=== PATIENT | male | born 1940 | race Caucasian/White ===

== ENCOUNTER 2017-05-18 21:09 | Inpatient (IN) ==
--- NOTE | 2017-05-18 21:19 | Emergency Department Report ---
Upper Extremity HPI - General Chief Complaint: Extremity Problem,Nontraumatic Stated Complaint: redness and tingling left arm post op Time Seen by Provider: 05/18/17 21:12 Source: patient Mode of arrival: ambulatory Limitations: no limitations - History of Present Illness HPI narrative: Patient recently had a pacemaker placed at [facility], today began developing tingling in the fingers of the left arm, with redness and swelling from the elbow down to the fingertips. This is progressed over the last 2 hours only. Patient has never had anything like this before, although he has had cellulitis in his lower extremities, no DVT history. And also notes left occipital headache with mild dizziness and a feeling of almost vertigo since surgery. Patient occasionally has sharp headaches in this area but this is more intense, dull, protracted, and has not relented with Tylenol at home.. - Related Data Home Medications Medication Instructions Recorded Confirmed Atorvastatin Calcium 40 mg PO HS #0 03/25/13 05/14/17 Warfarin Sodium 7.5 mg PO HS #0 03/25/13 05/14/17 Aspirin [Aspir 81] 81 mg PO HS #0 03/29/13 05/14/17 Amlodipine Besylate/Benazepril 1 cap PO HS 05/13/17 05/14/17 [Lotrel 5-20 mg Capsule] Calcium Carbonate [Calcium] 1 tab PO DAILY 05/14/17 05/14/17 Cholecalciferol (Vitamin D3) 1 tab PO DAILY 05/14/17 05/14/17 [Vitamin D3] Cranberry Fruit Extract [Cranberry] 200 mg PO DAILY 05/14/17 05/14/17 Magnesium Oxide [Magnesium] 400 mg PO DAILY 05/14/17 05/14/17 Oregano Oil [Oil of Oregano] 1,500 mg PO DAILY 05/14/17 05/14/17 Vitamin B Complex [Super B-50 1 each PO DAILY 05/14/17 05/14/17 Complex] Vitamin E 1 cap PO DAILY 05/14/17 05/14/17 Previous Rx's Medication Instructions Recorded Minocycline [Minocin] 100 mg PO BID #10 cap 05/15/17 Allergies Allergy/AdvReac Type Severity Reaction Status Date / Time levofloxacin Allergy Unknown Verified 04/03/13 21:29 Review of Systems All systems: reviewed and negative except as stated PFSH Patient Stated Medical History Cataracts Yes Other HEENT Yes: DENTURES Cardiac Arrhythmia Yes Coronary Artery Disease Yes Hypertension Yes Valvular Heart Disease Yes Gastroesophageal Reflux Yes: HX OF Disease Hx Benign Prostatic Yes Hyperplasia Other Hematologic Yes: ON COUMADIN Osteoarthritis Yes Other Infectious Yes: SORISIS Blood Transfusions Yes Pacemaker CABG Surgical History: Pacemaker. CABG. Tonsillectomy. TURP. Aortic valve replacement. Hemorrhoidectomy - Social History Smoking status: Former smoker Physical Exam - Limitations Limitations: no limitations - General General appearance: alert - Normal Exams: Head:: Normocephalic without trauma Eyes:: Pupils are PERRLA w/ EOMI, No scleral icterus, irritation, or foreign bodies noted ENMT:: No facial trauma, nasal exudates, pharyngeal erythema, or exudates are noted Neck:: Full range of motion, without adenopathy, JVD, bruits or thyromegaly Chest/Respirations:: Clear all garcia, with good airflow, and symmetry bilaterally Cardiovascular:: Regular rate and rhythm, without murmur or gallop, Pulses 2+ all extremities, capillary refill, <2 seconds all extremities Abdomen:: Bowel sounds positive, soft, non-tender, non-distended, no hepatosplenomegaly, masses or bruits noted Lymphatic:: No lymphadenopathy, or lymphedema noted Musculoskeletal:: No tenderness, or deformity noted, good range of motion, all extremities Neurological:: Patient is alert, and oriented, cranial nerves, motor/sensory/ cerebellar, exams w/o gross deficits, to observation Psychiatric:: Patient exhibits, appropriate attention, emotion and affect - Extremities Exam Extremities exam: Present: other (left upper extremity shows redness and swelling from the fingertips to the elbow, patient has no palpable masses, no significant tenderness, extreme is warm, with good capillary refill and good pulses.) Course Vital Signs Temperature 97.8 F 05/18/17 21:15 Pulse Rate 65 05/18/17 21:15 Respiratory Rate 20 05/18/17 21:15 Blood Pressure 187/88 H 05/18/17 21:15 Pulse Oximetry 95 05/18/17 21:15 Temperature 97.8 F 05/18/17 21:15 Pulse Rate 61 05/18/17 21:47 Respiratory Rate 20 05/18/17 21:47 Blood Pressure 187/88 H 05/18/17 21:47 Pulse Oximetry 94 05/18/17 21:47 Extremity Injury, Upper - MDM Narrative Medical decision making narrative: Patient declines pain medication for his headache Patient is given 1 L normal saline IV fluid bolus EKG - sinus paced rhythm without ectopy or infarction CBC - normal CMP - normal CT head - normal UE made Doppler - axillary vein DVT, nonocclusive Case is discussed with Dr. Doherty, who will admit the patient for Lovenox and continued Coumadin therapy - Lab Data Result diagrams: 05/18/17 21:30 05/18/17 21:30 Lab Results 05/18/17 05/18/17 05/18/17 Range/Units 21:30 21:30 21:30 WBC 6.0 (4.5-11.0) T/MM3 RBC 4.44 L (4.50-5.90) M/MM3 Hgb 14.2 (13.5-17.5) GM/DL Hct 41.5 (41-53) % MCV 93.5 (80-100) UM3 MCH 32.0 (26-34) UUG MCHC 34.2 (31-37) GM/DL RDW Std Deviation 44.3 (36.9-50.2) FL Plt Count 114 L (130-400) T/MM3 MPV 10.7 (9.4-12.4) UM3 Immature Gran % (Auto) 0.2 (0.0-0.5) % Neut % (Auto) 46.5 (33-66) % Lymph % (Auto) 32.7 (23-45) % Newberry % (Auto) 12.9 H (0-9.0) % Eos % (Auto) 7.0 H (0-4) % Baso % (Auto) 0.7 (0-2) % Neut # (Auto) 2.8 (1.8-7.7) T/MM3 Lymph # (Auto) 2.0 (1-4.8) T/MM3 Newberry # (Auto) 0.8 (0-0.8) T/MM3 Eos # (Auto) 0.4 (0-0.5) T/MM3 Baso # (Auto) 0.0 (0-0.2) T/MM3 Abs Immat Gran (auto) 0.01 (0.00-0.03) T/MM3 INR 1.10 (0.99-1.21) Turbidity < 20 (0-20) Sodium 141 (134-144) MEQ/L Potassium 4.0 (3.6-5) MEQ/L Chloride 105 (98-107) MEQ/L Carbon Dioxide 29 (22-30) MEQ/L Anion Gap 7 (5-15) MEQ/L BUN 21.0 H (9-20) MG/DL Creatinine 1.0 (0.8-1.5) MG/DL GFR Calculation 72 BUN/Creatinine Ratio 21 (6-26) RATIO Glucose 125 H (75-110) MG/DL Calculated Osmolality 275 (261-280) MOSM/KG Calcium 9.3 (8.4-10.2) MG/DL Total Bilirubin 0.50 (0.20-1.30) MG/DL Conjugated Bilirubin 0.00 (0.00-0.30) MG/DL Unconjugated Bilirubin 0.30 (0.00-1.1) MG/DL Icterus Index < 2 (0-7) AST 32 (17-59) U/L ALT 49 (21-72) U/L Alkaline Phosphatase 58 (38-126) U/L Total Protein 6.9 (6.3-8.2) G/DL Albumin 4.1 (3.5-5.0) G/DL Globulin 2.8 (2.4-3.6) G/DL Albumin/Globulin Ratio 1.5 (1.1-2.2) RATIO Specimen Hemolysis < 15 (0-25) Disposition Clinical Impression: DVT of upper extremity (deep vein thrombosis) Qualifiers: Affected thrombotic vein of extremity: axillary Chronicity: acute Laterality: left Qualified Code(s): I82.A12 - Acute embolism and thrombosis of left axillary vein Disposition: [facility] [place] Condition: Stable Prescriptions: No Action Amlodipine Besylate/Benazepril [Lotrel 5-20 mg Capsule] 1 cap PO HS Cranberry Fruit Extract [Cranberry] 200 mg PO DAILY Vitamin E 1 cap PO DAILY Cholecalciferol (Vitamin D3) [Vitamin D3] 1 tab PO DAILY Magnesium Oxide [Magnesium] 400 mg PO DAILY Calcium Carbonate [Calcium] 1 tab PO DAILY Atorvastatin Calcium 40 mg PO HS #0 Warfarin Sodium 7.5 mg PO HS #0 Aspirin [Aspir 81] 81 mg PO HS #0 Vitamin B Complex [Super B-50 Complex] 1 each PO DAILY Oregano Oil [Oil of Oregano] 1,500 mg PO DAILY Minocycline [Minocin] 100 mg PO BID #10 cap Referrals: Edis Deleon II, MD [Family Provider] - - Seen By: physician
[2017-05-18] MEDS ORDERED: HEPARIN 1,000unit/ml INJECTION 10ml IVP ONE (22:52)
[2017-05-18] MEDS: HEPARIN DRIP 20,000 UNIT/500 ML BAG IV SCH ×2 (23:19→23:44)
[2017-05-18] MEDS ORDERED: HEPARIN - PHARMACY CONSULT MC ONE (23:21)
[2017-05-19 00:11] VITALS: BMI 28.7
--- NOTE | 2017-05-19 08:15 | Pharmacy Consult ---
Pharmacy Consult-Heparin - Laboratory Information Heparin Plt Count 114 T/MM3 (130-400) L 05/18/17 21:30 APTT 92.8 SEC (24-36) H 05/19/17 06:55 - Consult Information PTT of 92.8 sec was slightly out of range so reduced heparin drip to 840 units/ hr. Will continue to monitor and adjust accordingly. Thank you.
--- NOTE | 2017-05-19 08:15 | CT Scan Report ---
Indication: postop left occipital headache with dizziness PROCEDURE: CT head/brain wo con: Encounter: Initial Comparison: None. FINDINGS: There is mild prominence of the ventricles and sulci compatible with cortical atrophy. There is no mass, mass effect, or midline shift. No evidence for intracranial hemorrhage. No intra or extra-axial fluid collections. No evidence for depressed skull fracture. The included portions of the sinuses are clear. IMPRESSION: Mild cortical atrophy. No evidence for acute cortical infarct, intracranial hemorrhage, or mass. .
--- NOTE | 2017-05-19 08:17 | Ultrasound Report ---
Indication: left arm tingling after recent pacemaker placement PROCEDURE: US venous doppler UE LT: Encounter: Initial Comparison: None. Technique: Color Doppler duplex and grayscale sonographic imaging of the left upper extremity was performed. FINDINGS: There is incomplete compressibility of the left axillary vein which suggests nonocclusive thrombus. The left internal jugular, subclavian, and brachial veins were evaluated; compression and augmentation were applied where possible. In addition, color and pulsed Doppler demonstrate appropriate spontaneous flow, cardiac pulsatility and variation with respiration. IMPRESSION: Possible nonocclusive thrombus in the left axillary vein. .
[2017-05-19] MEDS ORDERED: WARFARIN 5 MG TABLET PO SCH (12:00)
[2017-05-19] MEDS ORDERED: BENAZEPRIL PO SCH (12:00)
[2017-05-19] MEDS ORDERED: --POM--ASPIRIN *EC* 81 MG TABLET PO SCH (12:00)
[2017-05-19] MEDS ORDERED: AMLODIPINE PO SCH (12:00)
--- NOTE | 2017-05-19 15:26 | Pharmacy Consult ---
Pharmacy Consult-Heparin - Laboratory Information Heparin Plt Count 114 T/MM3 (130-400) L 05/18/17 21:30 APTT 76.6 SEC (24-36) H 05/19/17 14:22 - Consult Information We will continue to run heparin at the rate of 21mL per hour (840 units per hour ). PTT ordered for 1999 today. Adjustment if needed will be made at that time. Thanks
[2017-05-19] MEDS: PSYLLIUM PACKET PO SCH (17:15)
[2017-05-19] MEDS: MINOCYCLINE 100 MG CAPSULE PO SCH (17:17)
[2017-05-19] MEDS: ATORVASTATIN 40 MG TABLET PO SCH ×2 (17:18→21:31)
[2017-05-19] MEDS: WARFARIN 7.5 MG TABLET PO SCH (18:00)
[2017-05-19] MEDS ORDERED: HEPARIN DRIP 20,000 UNIT/500 ML BAG IV SCH ×2 (20:34→21:38)
--- NOTE | 2017-05-19 21:36 | Cardiology History & Physical ---
History of Present Illness HPI: very pleasant 77-year-old male well-known to me who just underwent dual-chamber permanent pacemaker implant S Chas 3 days ago. His warfarin was interrupted for the procedure. 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 Bridging therapy was not given due to increased risk of surgical bleed. Patient restarted his warfarin as directed on Friday, at his usual dose of 7.5 mg daily. Last night while resting at home he started experiencing some funny and feeling in his left arm followed by some tingling and swelling he's had come the emergency room to get checked out he underwent venous Doppler that showed nonocclusive thrombus in the axillary vein. Dr. Quiroga emergency room physician contacted me and I agreed to admit the patient for intravenous heparin given 5000 unit bolus and then 1000 units an hour and follow protocol allowing of at least 8 hours of heparin on board to avoid overshooting of PTT with recent surgery. Patient has no complaints related to his incision denies drainage swelling pain or redness denies fever chills denies any chest pain angina dyspnea or palpitations denies any TIA or strokelike symptoms that hematochezia or melena. He has done quite well since discharged home on . The time of my examination and (around the 8 30 a.m. today ) and Mr. Adames was a laying in bed comfortably and still aware of some slight slow swelling of the left arm no other complaints. Appears to be in good spirits. He has been about some mild puffiness at his pacemaker site and when I examined it and was able to reassure him. I did not appreciate any significant swelling or evidence of hematoma, see exam. Review of Systems All systems PM: 10-point ROS was reviewed, no additional remarkable complaints except - Cardiovascular Cardiovascular: Present: edema. Absent: chest pain, palpitations, syncope, dyspnea on exertion, orthopnea Rhythm: Present: regular rhythm - Respiratory Respiratory: Absent: cough - Gastrointestinal Gastrointestinal: Present: constipation (chronic, for which she takes psyllium powder in an herbal supplement that he once purchased from [place]). Absent : abdominal pain, change in bowel habits, coffee ground emesis, hematemesis, melena, nausea, vomiting - Neurological Neurological: Present: numbness. Absent: abnormal gait, abnormal movements, abnormal speech, confusion, dizziness, focal weakness, frequent falls, headache( s), loss of vision, memory loss, sensory deficit, vertigo, weakness - Psychiatric Psychiatric: Absent: anxiety PFSH Patient Stated Medical History Migraine Yes: occasionally Cataracts Yes Hearing Loss Yes: tinitis Other HEENT Yes: DENTURES Cardiac Arrhythmia Yes Coronary Artery Disease Yes Hypertension Yes Valvular Heart Disease Yes Gastroesophageal Reflux Yes: HX OF Disease Hx Benign Prostatic Yes Hyperplasia Other Hematologic Yes: ON COUMADIN Osteoarthritis Yes Other Infectious Yes: SORISIS Blood Transfusions Yes Surgical History: Pacemaker. CABG. Tonsillectomy. TURP. Aortic valve replacement. Hemorrhoidectomy - Social History Smoking status: Former smoker Substance use type: does not use Alcohol intake frequency: does not drink Current residence: Apartment/Private Home Medications Home Medications Medication Instructions Recorded Confirmed Type Atorvastatin Calcium 40 mg PO HS #0 03/25/13 05/19/17 History Warfarin Sodium 7.5 mg PO HS #0 03/25/13 05/19/17 History Aspirin [Aspir 81] 81 mg PO HS #0 03/29/13 05/19/17 History Amlodipine Besylate/Benazepril 1 cap PO HS 05/13/17 05/19/17 History [Lotrel 5-20 mg Capsule] Calcium Carbonate [Calcium] 1 tab PO DAILY 05/14/17 05/19/17 History Cholecalciferol (Vitamin D3) 1 tab PO DAILY 05/14/17 05/19/17 History [Vitamin D3] Cranberry Fruit Extract [Cranberry] 200 mg PO DAILY 05/14/17 05/14/17 History Magnesium Oxide [Magnesium] 400 mg PO DAILY 05/14/17 05/19/17 History Oregano Oil [Oil of Oregano] 1,500 mg PO DAILY 05/14/17 05/19/17 History Vitamin B Complex [Super B-50 1 each PO DAILY 05/14/17 05/19/17 History Complex] Vitamin E 1 cap PO DAILY 05/14/17 05/19/17 History Allergies Allergy/AdvReac Type Severity Reaction Status Date / Time levofloxacin Allergy Unknown Verified 04/03/13 21:29 Exam Vital signs: Temperature 96.4 F L 05/19/17 15:31 Pulse Rate 60 05/19/17 16:00 Respiratory Rate 20 05/19/17 15:31 Blood Pressure 154/77 H 05/19/17 15:31 Pulse Oximetry 97 05/19/17 15:31 - Constitutional no acute distress, well developed - Routine HEENT Exam Head: Present: normocephalic, atraumatic Eye: Present: EOMI, PERRL ENT: Present: mucous membranes moist - Routine Neck Exam Present: normal carotid upstroke. Absent: JVD, carotid bruit, lymphadenopathy, thyromegaly - Routine Chest/Breast/Axilla Exam Chest wall: Present: pacemaker (incision is healing quite well the slightest puffy appearance consistent with a recent implant wound is well approximated clean and no erythema no drainage and no significant swelling or evidence of hematoma or unexpected tenderness) - Routine Respiratory Exam Present: CTA bilaterally - Routine Cardiovascular Exam Present: RRR, no murmur, click (crisp mechanical valve clicks). Absent: murmur , gallop, JVD - Routine Abdominal Exam Present: soft, normoactive bowel sounds, non distended, non tender. Absent: organomegaly, mass - Routine Extremities Exam Present: edema (slight nonpitting edema in the left arm. Normal neurovascular exam otherwise digits are pink and warm radial pulse is intact capillary refill is normal), non tender, pulses intact, normal capillary refill. Absent: cyanosis, clubbing, palpable cord, extremity cold to touch - Routine Skin Exam Present: intact, dry, petechiae (slightly bruises bilateral upper arms). Absent : cyanosis, erythema - Routine Neurological Exam Present: alert, oriented X3, CN II-XII intact, vision grossly intact, hearing grossly intact, normal speech. Absent: sensory deficit, motor deficit, abnormal gait, facial asymmetry - Routine Psychiatric Exam Present: normal affect, normal thought process, cooperative, good insight, good judgment. Absent: depressed, anxious Results 05/18/17 21:30 05/18/17 21:30 Coagulation 05/19/17 05/19/17 05/19/17 Range/Units 06:55 14:22 19:54 APTT 92.8 H 76.6 H 63.3 H (24-36) SEC Intake and Output 05/19/17 05/19/17 05/19/17 06:59 14:59 22:59 Intake Total 100 / 100 731.667 / 731.667 120 / 120 Balance 100 / 100 731.667 / 731.667 120 / 120 Intake: IV 231.667 / 231.667 Heparin Drip 20,000 unit 231.667 / 231.667 In 500 ml @ 840 UNIT/HR 21 mls/hr IV .[id number] [facility] Rx#:[id number] Oral 100 / 100 500 / 500 120 / 120 Other: Size of Bowel Movement Small # Voids 1 1 1 # Bowel Movements 1 Weight 80.8 kg 80 kg Patient Weight 05/20/17 06:59 Weight 80 kg - EKG Interpretation EKG: sinus rhythm, no acute changes, not changed from: (previous. Sinus rhythm/ atrial paced) EKG interpretations - EKG EKG results cardiology: no acute changes - Dysrhythmias Sinus rhythms and dysrhythmias: sinus rhythm Hospital Course This is a general summary of the patient's hospital course. For more details refer to the complete medical record. DVT Prophylaxis: Coumadin, Heparin drip Assessment and Plan - Assessment and Plan (1) DVT of upper extremity (deep vein thrombosis) Current visit: Yes Status: Acute Intravenous heparin is started so far very well tolerated. I explained to the patient risk of bleeding from recent surgery including risk of hematoma or internal bleed he is in agreement with heparin. His warfarin will also be continued. Will be watched in the hospital We'll elevate left arm so slightly to use gravity reducing the edema up with multiple pillows under his left arm still kept her shoulder without elevation in light of acute pacemaker lead not to risk dislodgment. Follow labs. Resume his home meds (2) Presence of permanent cardiac pacemaker Current visit: Yes Status: Acute (3) History of artificial heart valve Current visit: Yes Status: Chronic
[2017-05-19] MEDS ORDERED: Oxycodone/Acetaminophen 5/325 1 TAB PO PRN (23:10)
[2017-05-19] MEDS: SALINE FLUSH 10ml SYRINGE IV PRN (23:15)
[2017-05-20] MEDS: MINOCYCLINE 100 MG CAPSULE PO SCH ×3 (05:31→17:29)
[2017-05-20] MEDS: SALINE FLUSH 10ml SYRINGE IV PRN ×2 (05:37→20:58)
[2017-05-20] MEDS: PSYLLIUM PACKET PO SCH (08:55)
[2017-05-20] MEDS ORDERED: WARFARIN 7.5 MG PO ONE (11:51)
[2017-05-20] MEDS: ASPIRIN *EC* 81 MG TABLET PO SCH (17:28)
[2017-05-20] MEDS: AMLODIPINE/BENAZEPRIL 5mg/20mg CAPSULE PO SCH (17:28)
[2017-05-20] MEDS: WARFARIN 7.5 MG TABLET PO SCH (17:29)
[2017-05-20] MEDS: ATORVASTATIN 40 MG TABLET PO SCH (20:58)
--- NOTE | 2017-05-20 22:26 | Cardiology Progress Note ---
Subjective Interval history: Mr. flores had some swelling noted by RN last night and concern for hematoma so his heparin was stopped. He appears comfortablespontaneous pain at his pacemaker incision arm still feeling quite well without edema no tingling of funny feeling in it anymore. He denies angina dyspnea denies any TIA or strokelike symptoms has good appetite no problems with bowels or urine Telemetry and labs reviewed in detail remains in sinus rhythm/atrial paced Exam Vital signs: Temperature 96 F L 05/20/17 08:00 Pulse Rate 69 05/20/17 15:44 Respiratory Rate 12 05/20/17 15:41 Blood Pressure 125/69 05/20/17 15:41 Pulse Oximetry 95 05/20/17 15:41 - Constitutional no acute distress - Routine HEENT Exam Head: Present: normocephalic, atraumatic Eye: Present: EOMI, PERRL ENT: Present: mucous membranes moist - Routine Neck Exam Present: supple, normal carotid upstroke. Absent: JVD, carotid bruit, lymphadenopathy, thyromegaly - Routine Chest/Breast/Axilla Exam Chest wall: Present: pacemaker (appears to be small size hematoma of his recent pacemaker pocket. Appears mildly raised and less than 1 inch below the incision. Incision still well approximated no excessive tension there is mild tenderness no erythema no discharge) - Routine Respiratory Exam Present: CTA bilaterally - Routine Cardiovascular Exam Present: RRR, click (a crisp mechanical valve clicks) - Routine Abdominal Exam Present: soft, normoactive bowel sounds, non distended, non tender. Absent: organomegaly, mass - Routine Extremities Exam Present: no edema, non tender, pulses intact, normal capillary refill. Absent: cyanosis, clubbing - Routine Skin Exam Present: intact. Absent: cyanosis, erythema - Routine Neurological Exam Present: alert, oriented X3, CN II-XII intact, moving all extremities, vision grossly intact, hearing grossly intact, normal speech - Routine Psychiatric Exam Present: normal affect, normal thought process, cooperative Assessment and Plan - Assessment and Plan (1) DVT of upper extremity (deep vein thrombosis) Current visit: Yes Status: Acute (2) Presence of permanent cardiac pacemaker Current visit: Yes Status: Acute A subcutaneous small pocket hematoma appears to be present at the site of recent and pacemaker implant Discussed with the patient and refers and cons of anticoagulation for upper extremity DVT and the risk of expanding and is hematoma. Decision is to keep off heparin next 24 hours but continue warfarin to allow a gradual increases in INR and reassess that tomorrow He's changed to inpatient status (3) History of artificial heart valve Current visit: Yes Status: Chronic Hospital Course Summary Disclaimer: The visit summary below is not to be considered part of the above Progress Note.
[2017-05-21] MEDS: MINOCYCLINE 100 MG CAPSULE PO SCH ×2 (06:38→17:34)
[2017-05-21] MEDS: PSYLLIUM PACKET PO SCH (10:00)
[2017-05-21] MEDS ORDERED: ACETAMINOPHEN 325 MG TABLET PO PRN (16:35)
[2017-05-21] MEDS: AMLODIPINE/BENAZEPRIL 5mg/20mg CAPSULE PO SCH (17:34)
[2017-05-21] MEDS: ASPIRIN *EC* 81 MG TABLET PO SCH (17:35)
[2017-05-21] MEDS: WARFARIN 7.5 MG TABLET PO SCH (17:35)
[2017-05-21] MEDS: ATORVASTATIN 40 MG TABLET PO SCH (20:46)
[2017-05-21] MEDS: SALINE FLUSH 10ml SYRINGE IV PRN (20:47)
--- NOTE | 2017-05-21 21:12 | Cardiology Progress Note ---
Subjective Interval history: Gianfranco is doing well. He is to be in good spirits good appetite normal BM and urine without difficulties or change. He's been ambulatory pacing the hallways [id number] he did feel his left arm was a bit tender just over the elbow little soreness at improved with Tylenol. No further swelling of his left arm no angina no dyspnea or palpitations no sharp or pleuritic chest pain no TIA or strokelike symptoms. No spontaneous pain at his pacemaker site and no change in the degree of swelling confirmed on my exam. He remains off heparin on warfarin INR 1.49 Telemetry shows sinus rhythm/atrial paced rhythm All available data including vital signs oxygen saturation weights I&O's Labs telemetry x-ray results reviewed in detail Also discussed with RN Exam Vital signs: Temperature 96.8 F 05/21/17 15:41 Pulse Rate 83 05/21/17 15:41 Respiratory Rate 18 05/21/17 15:41 Blood Pressure 139/81 05/21/17 15:41 Pulse Oximetry 96 05/21/17 15:41 - Constitutional no acute distress, well nourished - Routine HEENT Exam Head: Present: normocephalic, atraumatic Eye: Present: EOMI, PERRL ENT: Present: mucous membranes moist - Routine Neck Exam Present: normal carotid upstroke. Absent: JVD, carotid bruit - Routine Chest/Breast/Axilla Exam Chest wall: Present: pacemaker (a small hematoma unchanged in size, about the size of a half of a small lemon. Incision wound well approximated without erythema or fluctuance. It is still mildly tender to touch) - Routine Respiratory Exam Present: CTA bilaterally - Routine Cardiovascular Exam Present: RRR, no murmur, click (crisp mechanical valve clicks without murmur) - Routine Abdominal Exam Present: soft, normoactive bowel sounds, non distended, non tender. Absent: organomegaly, mass - Routine Extremities Exam Present: no edema. Absent: cyanosis, clubbing, edema - Detailed Extremities Exam: Vascular Peripheral pulses: 2+ radial (L) - Detailed Upper Extremity Exam Shoulder/Upper Arm: Left normal inspection, Left deformity (none), Left swelling (none), Left tenderness (slight), Left warmth (none), Left fluctuance ( none), Left full ROM, Left pain with active ROM (none), Left pain with passive ROM (none) Hand/Fingers: Left normal inspection, Left erythema (none), Left warmth (normal) - Routine Skin Exam Present: intact, dry. Absent: cyanosis, erythema - Routine Neurological Exam Present: alert, oriented X3, CN II-XII intact, moving all extremities, vision grossly intact, hearing grossly intact, normal speech. Absent: motor deficit, facial asymmetry - Routine Psychiatric Exam Present: normal affect, normal thought process, cooperative Assessment and Plan - Assessment and Plan (1) DVT of upper extremity (deep vein thrombosis) Current visit: Yes Status: Acute On warfarin, heparin was held due to pacemaker site hematoma (2) Presence of permanent cardiac pacemaker Current visit: Yes Status: Acute With a stable small hematoma following parenteral anticoagulation for upper extremity DVT (3) History of artificial heart valve Current visit: Yes Status: Chronic On warfarin have her hold due to pacemaker site hematoma, risk of heparin outweighs the benefit at this time We'll continue reevaluate her daily basis Continue aspirin Hospital Course Summary Disclaimer: The visit summary below is not to be considered part of the above Progress Note.
[2017-05-22] MEDS: MINOCYCLINE 100 MG CAPSULE PO SCH ×2 (06:43→18:07)
[2017-05-22] MEDS: PSYLLIUM PACKET PO SCH (08:13)
[2017-05-22] MEDS: WARFARIN 7.5 MG TABLET PO SCH (16:43)
[2017-05-22] MEDS ORDERED: WARFARIN 5 MG TABLET PO ONE (17:00)
[2017-05-22] MEDS: AMLODIPINE/BENAZEPRIL 5mg/20mg CAPSULE PO SCH (18:07)
[2017-05-22] MEDS: ASPIRIN *EC* 81 MG TABLET PO SCH (18:08)
--- NOTE | 2017-05-22 18:28 | Cardiology Progress Note ---
Subjective Interval history: Gianfranco is doing well. He is to be in good spirits good appetite normal BM and urine without difficulties or change. He's been ambulatory pacing the halls xu salazard and asking about going home no swelling in L arm but some discomfort and mild sorenss when he puts his elbow on the table no pain at pacemaker site . He remains off heparin on warfarin INR 1.57 Telemetry shows sinus rhythm/atrial paced rhythm All available data including vital signs oxygen saturation weights I&O's Labs telemetry x-ray results reviewed in detail Also discussed with RN Exam Vital signs: Temperature 95.9 F L 05/22/17 15:31 Pulse Rate 63 05/22/17 15:31 Respiratory Rate 14 05/22/17 15:31 Blood Pressure 116/69 05/22/17 15:31 Pulse Oximetry 95 05/22/17 15:31 - Constitutional no acute distress - Routine HEENT Exam Head: Present: normocephalic, atraumatic Eye: Present: EOMI, PERRL ENT: Present: mucous membranes moist - Routine Neck Exam Present: supple, normal carotid upstroke. Absent: JVD, carotid bruit - Routine Chest/Breast/Axilla Exam Chest wall: Present: pacemaker (small hematoma unchanged) - Routine Respiratory Exam Present: CTA bilaterally - Routine Cardiovascular Exam Present: RRR, click (crisp mech valve clicks) - Routine Abdominal Exam Present: soft, normoactive bowel sounds, non distended, non tender - Routine Extremities Exam Present: no edema, pulses intact, normal capillary refill. Absent: cyanosis, clubbing, edema - Routine Skin Exam Present: intact, dry. Absent: cyanosis, erythema - Routine Neurological Exam Present: alert, oriented X3, CN II-XII intact, moving all extremities, vision grossly intact, hearing grossly intact, normal speech. Absent: motor deficit, facial asymmetry - Routine Psychiatric Exam Present: normal affect, normal thought process, cooperative, good insight, good judgment Assessment and Plan - Assessment and Plan (1) DVT of upper extremity (deep vein thrombosis) Current visit: Yes Status: Acute cont coumadin, incraese to 10 mg today only no heparin d/t hematoma at pacemaker site pt is asking to go home. hes agreeable to stay tonight ,hopefull his INR will be inching closer to 2 (2) Presence of permanent cardiac pacemaker Current visit: Yes Status: Acute (3) History of artificial heart valve Current visit: Yes Status: Chronic Hospital Course Summary Disclaimer: The visit summary below is not to be considered part of the above Progress Note.
[2017-05-22] MEDS: SALINE FLUSH 10ml SYRINGE IV PRN (20:27)
[2017-05-22] MEDS: ATORVASTATIN 40 MG TABLET PO SCH (20:27)
[2017-05-23] MEDS: MINOCYCLINE 100 MG CAPSULE PO SCH (06:17)
[2017-05-23] MEDS: PSYLLIUM PACKET PO SCH (09:00)
[2017-05-23 09:23] VITALS: BP 137/73; PULSE 62; RESP 18; TEMP 96.8; O2SAT 99
[2017-05-23] MEDS ORDERED: WARFARIN 5 MG TABLET PO ONE (12:00)
--- NOTE | 2017-05-23 12:56 | Discharge Summary ---
Discharge Information Date of admission: 05/20/17 16:49 Attending Physician: Jessika Doherty MD Primary care physician: Edis Deleon II, MD - Discharge Diagnosis (1) DVT of upper extremity (deep vein thrombosis) Status: Acute (2) Presence of permanent cardiac pacemaker Status: Acute (3) History of artificial heart valve Status: Chronic - Laboratory Labs: 05/21/17 04:06 History of Present Illness HPI: Brief admission summary: very pleasant 77-year-old male well-known to me who just underwent dual-chamber permanent pacemaker implant 3 days ago. His warfarin was interrupted for the procedure. 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 Bridging therapy was not given due to increased risk of surgical bleed. Patient restarted his warfarin as directed on Friday, at his usual dose of 7.5 mg daily. Last night while resting at home he started experiencing some funny and feeling in his left arm followed by some tingling and swelling he's had come the emergency room to get checked out he underwent venous Doppler that showed nonocclusive thrombus in the axillary vein. Dr. Quiroga emergency room physician contacted me and I agreed to admit the patient for intravenous heparin given 5000 unit bolus and then 1000 units an hour and follow protocol all of at least 8 hours of heparin on board to avoid overshooting of PTT with recent surgery. Patient has no complaints related to his incision denies drainage swelling pain or redness denies fever chills denies any chest pain angina dyspnea or palpitations denies any TIA or strokelike symptoms that hematochezia or melena. He has done quite well since discharged home on . The time of my examination and (around the 8 30 a.m. today ) and Mr. Adames was a laying in bed comfortably and still aware of some slight slow swelling of the left arm no other complaints. Appears to be in good spirits. He has been about some mild puffiness at his pacemaker site and when I examined it and was able to reassure him. I did not appreciate any significant swelling or evidence of hematoma, see exam. 05/23/17 12:36 Hospital course summary: Mr. Doherty was admitted to a medical unit telemetry bed for management of possible nonocclusive DVT of the left upper extremity including the axillary vein, see radiology report. Patient was started on IV heparin protocol after initial bolus and drip started PT T managed per pharmacy protocol. The patient developed a hematoma, so heparin was stopped while patient was maintained on warfarin.Mild Left arm swelling came down by simply elevating his left arm on 2 pillows while maintaining the upper arm under the shoulder level. Hematoma was monitored off heparin and remained small nonpainful and no signs of infection wound remained well approximated patient had no spontaneous pain. Patient was monitored for additional 3 days for stability of his small hematoma as a mild fact was already shrinking and on my examination day of discharge 05/23/2017 his INR is up to 1.78 medications from his upper extremity DVT patient remained ambulatory without any chest pain dyspnea or further swelling of his left upper extremity . He did have mild tenderness over the posterior aspect of his upper arm without any palpable cords or visible skin changes. His INR is up to 1.78 today and is quite anxious to go home. His been maintained on warfarin 7.5 mg daily which is his usual dose. Patient did receive at 10mg yesterday and is going to receive another 10 mg today given early at noon. He has an artificial mechanical valve in the aortic position, And was maintained on aspirin and warfarin throughout his hospital stay without any symptoms or signs of TIA or stroke.Patient remained in sinus rhythm/atrial paced rhythm throughout hospital stay without arrhythmia. Post discharge instructions and restrictions with her son discussed with the patient and and they were quite comfortable with the management plan 05/23/17 13:04 Hospital Course This is a general summary of the patient's hospital course. For more details refer to the complete medical record. Time spent with patient: greater than 35 minutes DVT Prophylaxis: Xarelto Exam Vital signs: Temperature 96.8 F 05/23/17 08:00 Pulse Rate 62 05/23/17 08:00 Respiratory Rate 18 05/23/17 08:00 Blood Pressure 137/73 05/23/17 08:00 Pulse Oximetry 99 05/23/17 08:00 - Constitutional no acute distress - Routine HEENT Exam Head: Present: normocephalic, atraumatic Eye: Present: EOMI, PERRL. Absent: periorbital ecchymosis, exophthalmos, proptosis ENT: Present: mucous membranes moist Nose: moist mucous membranes - Routine Neck Exam Present: supple, full ROM, normal carotid upstroke. Absent: JVD, carotid bruit , lymphadenopathy, thyromegaly - Routine Chest/Breast/Axilla Exam Chest wall: Present: pacemaker (small hematoma appears to be actually shrinking at this time, at its inferior border) - Routine Respiratory Exam Present: CTA bilaterally - Detailed Respiratory Exam ON THE INFERIOR BORDER Present: clear to auscultation - Routine Cardiovascular Exam Present: RRR, no murmur, click (crisp mechanical aortic valve clicks). Absent: murmur, gallop, rubs - Detailed Cardiovascular Exam Palpation: Absent: displaced PMI, heave, thrill Auscultation: Absent: pericardial rub - Routine Abdominal Exam Present: soft, normoactive bowel sounds, non distended, non tender. Absent: organomegaly, mass - Routine Extremities Exam Present: no edema, non tender, pulses intact, normal capillary refill. Absent: cyanosis, clubbing, calf tenderness, palpable cord, tenderness - Routine Skin Exam Present: intact, dry, warm. Absent: cyanosis, pallor, petechiae - Routine Neurological Exam Present: alert, oriented X3, CN II-XII intact, moving all extremities, vision grossly intact, hearing grossly intact, normal speech. Absent: sensory deficit , motor deficit, altered mental status, hemineglect, facial asymmetry - Routine Psychiatric Exam Present: normal affect, normal thought process, cooperative, good insight, good judgment Results 05/21/17 04:06 05/18/17 21:30 Intake and Output 05/22/17 05/23/17 05/23/17 22:59 06:59 14:59 Intake Total 850 / 850 50 / 50 250 / 250 Balance 850 / 850 50 / 50 250 / 250 Intake: Oral 850 / 850 50 / 50 250 / 250 Other: Urine Color Pale # Incontinent Voids 1 Weight 78.3 kg Patient Weight 05/24/17 06:59 Weight 78.3 kg - EKG Interpretation EKG: sinus rhythm Discharge Plan - Med Rec/Dispo Referrals/Follow Up: Jessika Doherty MD [Physician] - 2 Weeks Edis Deleon II, MD [Family Provider] - [place] Instructions: Deep Venous Thrombosis (GEN) Prescriptions: Continue Amlodipine Besylate/Benazepril [Lotrel 5-20 mg Capsule] 1 cap PO HS Cranberry Fruit Extract [Cranberry] 200 mg PO DAILY Vitamin E 1 cap PO DAILY Cholecalciferol (Vitamin D3) [Vitamin D3] 1 tab PO DAILY Magnesium Oxide [Magnesium] 400 mg PO DAILY Calcium Carbonate [Calcium] 1 tab PO DAILY Atorvastatin Calcium 40 mg PO HS #0 Warfarin Sodium 7.5 mg PO HS #0 Aspirin [Aspir 81] 81 mg PO HS #0 Vitamin B Complex [Super B-50 Complex] 1 each PO DAILY Oregano Oil [Oil of Oregano] 1,500 mg PO DAILY Minocycline [Minocin] 100 mg PO BID #5 cap - Disposition 01 Discharged Home, Self-Care - Dismissal Complete Discharge Instructions are:: Complete
[2017-05-26] MEDS ORDERED: WARFARIN 5 MG TABLET PO SCH (12:00)
== END 2017-05-23 14:05 | disposition home or self-care (01) | DRG 301 ==
LOC: MED 21:09 → ED 21:09 → MED 23:25
PROVIDERS: ADMIT Internal Medicine Cardiovascular Disease; ATTEND Internal Medicine Cardiovascular Disease